=== PATIENT | male | born 2005 | race Caucasian/White ===

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

== ENCOUNTER 2024-08-05 01:29 | Emergency (ER) | payer OTHER, SELFPAY ==
[2024-08-05 01:33] VITALS: BP 112/60; PULSE 71; RESP 16; TEMP 36.7; O2SAT 100
--- NOTE | 2024-08-05 03:10 | ECG_ITS ---
Test Date: 2024-08-05 03:12:52 Measurements Intervals Stanley Rate: 75 P: 67 WA: 141 QRS: 72 QRSD: 114 T: 40 QT: 377 QTc: 423 Interpretive Statements SINUS RHYTHM INCOMPLETE RIGHT BUNDLE BRANCH BLOCK NONSPECIFIC ST ELEVATION IN ANTEROLAT/HIGH LAT LEADS BASELINE ARTIFACT- I, II BORDERLINE ECG No previous ECG available for comparison Electronically Signed On 08-07-2024 14:54:22 CDT by Marco Antonio Rivera D.O.
[2024-08-05 03:12] VITALS: BP 77/47; PULSE 80; RESP 13; O2SAT 100
[2024-08-05 03:14] VITALS: BP 104/60; PULSE 76; RESP 14; O2SAT 100
[2024-08-05] MEDS: LACTATED RINGERS 1,000 ML 999 ML IV CONT (03:31)
[2024-08-05] MEDS: FAMOTIDINE 20 MG/2 ML VIAL IV PUSH (03:32)
[2024-08-05] MEDS: THIAMINE HCL INJ 100 MG, FOLIC ACID INJ 1 MG, MAGNESIUM SULFATE INJ 1 GM in LACTATED RI... 1000 MG IV CONT (03:42)
[2024-08-05 03:43] LABS: Basophils Percent Auto 0.3 % (0.2-1.2); Eosinophils Percent Auto 0.3 % (0-4.4); Hematocrit 47.9 % (42.0-52.0); Hemoglobin 15.4 g/dL (14.0-18.0); Immature Granulocyte Absolute 0.05 K/mm3 (0.00-0.031); Immature Granulocyte Percent A 0.4 % (0-0.5); Lymphocytes Absolute Auto 1.05 K/mm3 (0.9-3.2); Lymphocytes Percent Auto 8.8 % (18.3-44.2); Mean Corpuscular HGB Conc 32.2 g/dl (32-36); Mean Corpuscular Hemoglobin 26.5 pg (26-34); Mean Corpuscular Volume 82.3 fl (80-100); Mean Platelet Volume 9.5 fl (7.4-10.4); Monocytes Absolute Auto 0.3 K/mm3 (0.1-0.6); Monocytes Percent Auto 2.4 % (2.6-8.5); Neutrophils Absolute Auto 10.5 K/mm3 (1.3-6.7); Neutrophils Percent Auto 87.8 % (45.5-73.1); Platelet Count Result 255 k/mm3 (150-375); Red Blood Count 5.82 M/mm3 (4.6-6.20); Red Cell Distribution Width 13.6 % (11.5-14.5); White Blood Count 11.9 K/mm3 (4.5-10.0)
[2024-08-05 03:48] VITALS: BP 121/72; PULSE 100; RESP 17; O2SAT 100
--- NOTE | 2024-08-05 03:54 | ED.ALCOHOL ---
HPI - Alcohol General Chief Complaint: Alcohol Stated Complaint: Etoh, not acting right Time Seen by Provider: 08/05/24 03:09 History of Present Illness HPI narrative: 19-year-old male who is otherwise healthy presenting to the emergency department for alcohol intoxication. Patient states it was his birthday celebration he was having copious amounts of alcohol to drink throughout the day. He had a syncopal event without any head trauma. Patient is presently awake alert oriented answers all questions appropriately. 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 Patient is presently answer all my questions, states he did have alcohol today but no other intoxicants or substances. States he feels fine without any concerns. Denies any headache, vision changes, abdominal pain, nausea, vomiting. Was otherwise in his normal state of health. Does not take any prescription medications. Related Data Home Medications Medication Instructions Recorded Confirmed No Home Medications 08/05/24 08/05/24 Allergies Allergy/AdvReac Type Severity Reaction Status Date / Time No Known Allergies Allergy Verified 08/05/24 01:36 Review of Systems Review of Systems: As reviewed above in the [facility] Social History Social History Smoking status: Never smoker Gender identity (if verbalized by the patient): Male Exam Narrative: GENERAL: Intoxicated appearing but not any acute distress, answering all my questions appropriately, pleasant and cooperative. HEAD: [Normocephalic, atraumatic.] EYES: [PERRLA and EOMI.] ENT: Nares clear, no rhinorrhea or epistaxis. Mucous membranes moist. NECK: Supple. CHEST: [Clear to auscultation. No respiratory distress.] HEART: [Regular rate and rhythm]. No murmur heard. [Normal peripheral pulses.] ABDOMEN: [Soft, nondistended], [nontender], [No rigidity or guarding] EXTREMITIES: Normal range of motion. [No edema.] SKIN: Warm, dry, no rash. NEURO: [No focal deficits]. Alert and oriented [x3.] PSYCH: [Normal mood and affect.] Course Vital Signs Vital signs: Vital Signs Temperature 36.7 C 08/05/24 01:33 Pulse Rate 71 08/05/24 01:33 Respiratory Rate 16 08/05/24 01:33 Blood Pressure 112/60 08/05/24 01:33 Pulse Oximetry 100 08/05/24 01:33 Oxygen Delivery Room Air 08/05/24 01:33 Temperature 36.7 C 08/05/24 01:33 Pulse Rate 100 08/05/24 03:48 Respiratory Rate 17 08/05/24 03:48 Blood Pressure 121/72 08/05/24 03:48 Pulse Oximetry 100 08/05/24 03:48 Oxygen Delivery Room Air 08/05/24 01:33 MDM - Alcohol MDM Narrative Medical decision making narrative: 19-year-old male presenting for alcohol intoxication. He is presently awake alert oriented but did have a syncopal event earlier today his fr[employer]. He is presently alert oriented and admits to alcohol use but no other intoxicants today. States he is otherwise in his normal state of health. He has no acute concerns but does appear dehydrated. Resting comfortably with normal reassuring vital signs. He was given fluid bolus, Pepcid, thiamine folate and magnesium for his alcohol intoxication. An EKG was obtained given the syncopal event. Laboratory studies including CPK, CMP, CBC were obtained as well as urine drug screen and alcohol level. He has family with him at bedside who were agreeable to drive him home upon completion of his workup. Drug screen was negative, alcohol mildly elevated 147, clinically is sober upon re-evaluation. Minor leukocytosis, normal electrolyte panel, normal renal function panel. CPK mildly elevated at 413 but he is well-hydrated, urinating appropriate. He is stable for discharge home at this time accompanied by his family and friends who feel comfortable driving home. Patient was made aware and also comfortable going home at this
[2024-08-05 04:03] LABS: Alanine Aminotransferase 49 U/L (6-50); Albumin Level 4.8 g/dL (3.5-5.1); Alkaline Phosphatase 82 U/L (38-126); Anion Gap 14 mmol/L (4-12); Aspartate Amino Transferase 48 U/L (17-59); Bilirubin,Total 0.5 mg/dL (0.2-1.3); Blood Urea Nitrogen 17 mg/dL (9-20); Calcium 8.8 mg/dL (8.4-10.2); Carbon Dioxide 28 mmol/L (22-30); Chloride 102 mmol/L (98-107); Estimated CRCL calculation 145 ml/min; Estimated Glomerular Filt Rate > 60; Glucose 92 mg/dL (65-110); Magnesium 2.4 mg/dL (1.6-2.3); Potassium 3.7 mmol/L (3.4-5.0); Sodium 144 mmol/L (137-145)
[2024-08-05 04:16] LABS: Ethanol 147 mg/dL (<10)
[2024-08-05 04:17] LABS: Amphetamine Screen Urine Negative (Negative); Barbiturate Screen Urine Negative (Negative); Benzodiazepines Screen Urine Negative (Negative); Cannabinoid Screen Urine Negative (Negative); Cocaine Screen Urine Negative (Negative); Methadone Screen Urine Negative (Negative); Opiate Screen Urine Negative (Negative); Phencyclidine Screen Urine Negative (Negative)
[2024-08-05 04:20] LABS: Creatine Kinase 413 U/L (55-170)
== END 2024-08-05 05:39 | disposition home or self-care (01) ==
PROVIDERS: Emergency Provider Student in an Organized Health Care Education/Training Program; PCP Pediatrics
DX: F10.129 Alcohol abuse with intoxication, unspecified (principal); Y90.6 Blood alcohol level of 120-199 mg/100 ml
CPT/HCPCS: 36415; 80053; 80307; 82550; 83735; 85025; 93005; 96365; 96375; 99284; J3411; J3475; J7120